=== PATIENT | female | born 1955 | race Two or more races ===

== ENCOUNTER 2018-03-03 10:37 | Outpatient (CLI) | payer OTHER | END 2018-03-03 10:41 | disposition home or self-care (01) | LOC: RAD 10:37 | DX: M25.561 Pain in right knee (principal); M25.562 Pain in left knee ==

== ENCOUNTER 2018-08-04 07:30 | Inpatient (IN) | payer OTHER ==
[~2018-08-04] VITALS: Ht 152.4 cm; Wt 80.7 kg
[2018-08-04] MEDS ORDERED: LOSARTAN-HCTZ1 EAC1 PO (09:14)
[2018-08-04] MEDS ORDERED: LYRICA50 MG PO (09:14)
[2018-08-04] MEDS ORDERED: ZANTAC150 M3 PO (09:15)
[2018-08-04] MEDS ORDERED: TOPROL XL25 M1 PO (09:15)
[2018-08-04] MEDS ORDERED: ATORVASTATIN CA40 MG PO (09:16)
[2018-08-04] MEDS ORDERED: FORTAMET500 MG PO (09:16)
[2018-08-04] MEDS ORDERED: TRAMADOL HCL50 MG (09:16)
[2018-08-04] MEDS ORDERED: SYNTHROID75 MCG PO (09:17)
[2018-08-04] MEDS ORDERED: ATIVAN2 MG PO (09:17)
[2018-08-04] MEDS ORDERED: TRAZODONE HCL100 MG PO (09:18)
[2018-08-04] MEDS ORDERED: CALTRATE 600 +1 EACH PO (09:18)
[2018-08-04] MEDS ORDERED: PREVACID (09:19)
[2018-08-04] MEDS ORDERED: PREVISION PO (09:19)
[2018-08-04] MEDS ORDERED: PNEU16DI2 (09:19)
[2018-08-04] MEDS ORDERED: DAILY MULTIVIT1 EAC4 (09:19)
[2018-08-04] MEDS ORDERED: MULTIPLE VITAM1 EACH PO (09:19)
[2018-08-04] MEDS ORDERED: FOLGARD TABLET1 EACH PO (09:20)
[2018-08-04] MEDS ORDERED: VITAMIN E (09:21)
[2018-08-11] MEDS ORDERED: PREVACID15 MG PO (08:14)
[2018-08-11] MEDS ORDERED: VITAMIN E100 UNI2 PO (08:15)
[2018-08-11] MEDS ORDERED: PRESERVISION A1 EAC2 PO (08:17)
== END 2018-08-12 18:18 | DRG 467 ==
LOC: SURH 08-10 07:30 → O/R 08-10 08:38 → SURH 08-10 08:38
PROVIDERS: ADMIT Orthopaedic Surgery
PROC: 0SWD0JZ Revision of Synthetic Substitute in Left Knee Joint, Open Approach (ICD-10-PCS; principal; 2018-08-10 10:00)
DX: T84.84XA Pain due to internal orthopedic prosthetic devices, implants and grafts, initial encounter (principal); D62 Acute posthemorrhagic anemia; Z96.652 Presence of left artificial knee joint; I10 Essential (primary) hypertension; E11.9 Type 2 diabetes mellitus without complications; E03.8 Other specified hypothyroidism; Z79.01 Long term (current) use of anticoagulants